=== PATIENT | female | born 1940 | race Caucasian/White ===

== ENCOUNTER → 2024-09-13 | Outpatient (CLI) | payer MEDICARE, BC ==
--- NOTE | 2024-09-14 08:57 | PE ---
EXAMINATION TYPE: PET CT fusion skull to thigh DATE OF EXAM: 09/13/2024 COMPARISON: NONE HISTORY: Lymphadenopathy. TECHNIQUE: Following the intravenous administration of 10.76 mCi of F-18 FDG, whole body images are performed from the skull base to the midthigh. Images are reviewed on the computer in the coronal, a xial, and sagittal planes. Reconstructed rotating images are created on independent workstation and reviewed on the computer. A localization and attenuation correction CT is performed in conjunction with the PET scan. Blood glucose level equals 85. SCAN: Initial Scan FINDINGS: SKULL BASE AND NECK: No definitive abnormal hypermetabolic lymph nodes. CHEST, MEDIASTINUM, AND HILAR REGION: There is abnormal enlargement and hypermetabolic thoracic adeno elgin extending into the anterior superior mediastinum. For reference there is an enlarged prevascula r lymph node measuring 2.3 x 1.1 cm axial image 78. Max SUV is 7.07 on axial image 72. Hypermetabolic prominent lymph node posterior to medial left clavicle upper mediastinum axial image 62, max SUV is 4.64 No abnormal hypermetabolic axillary lymph nodes are seen. ABDOMEN AND PELVIS: There are abnormal hypermetabolic retroperitoneal lymph nodes in the abdomen. For reference is a subcentimeter aortocaval lymph node axial image 162 with max SUV of 7.54. There are more prominent and enlarged hypermetabolic right pelvic or iliac chain lymph nodes. For ref erence is a 1.9 x 1.8 cm lymph node axial image 202. Max SUV is 10.89. There is more proximal hyperme tabolic lymph node with max SUV 11.85 on axial image 182 along the common iliac vessels. There is diffuse hypermetabolic uptake corresponding to the lower uterus/cervix posterior to the blad michelle. An underlying malignancy needs to be strongly considered. Max SUV is 24.08. OSSEOUS STRUCTURES: No definitive focal areas of abnormal hypermetabolic uptake. OTHER CT: Advanced degenerative change bilateral glenohumeral joints. Bilateral aphakia is present. M ild bibasilar linear scarring and/or atelectasis. No significant coronary artery calcification. Distal colonic diverticulosis. Small fat-containing bilateral inguinal hernias. IMPRESSION: Suspicious masslike uptake in the lower uterine segment/cervix is worrisome for primary n eoplasm. There is abnormal retroperitoneal adenopathy in the right pelvis and abdomen and abnormal me diastinal adenopathy in the thorax noted as detailed above. [facility], , 09/14/2024 8:54 AM
== END | disposition home or self-care (01) ==
LOC: RADPETMAIN 14:46
PROVIDERS: ATTEND Internal Medicine Hematology & Oncology
DX: R59.0 Localized enlarged lymph nodes (principal)
CPT/HCPCS: 78815; A9552

== ENCOUNTER 2024-10-04 12:44 | Day surgery (SDC) | payer MEDICARE, BC ==
[2024-10-02 14:59] VITALS: BMI 29.2
[~2024-10-04 12:44] MED LIST: HYDROmorphone 0.5 MG/0.5 ML SYRINGE IVP PRN; LACTATED RINGERS 1,000 ML IV SCH; LIDOCAINE 1% (10MG/ML) FOR IV START INTRADERMA PRN; MIDAZOLAM 2 MG/2 ML VIAL IV PRN; fentaNYL (PF) 50 MCG/ML 2 ML AMP IVP PRN
[2024-10-04] MEDS: IV FLUID CONTINUATION 1,000 ML IV ONE (13:16)
[2024-10-04] MEDS: DEXAMETHASONE SOD PHOSPHATE 4 MG/ML 1 ML VIAL IV ONE (13:26)
[2024-10-04] MEDS: ONDANSETRON 4 MG/2 ML VIAL IVP ONE (13:26)
[2024-10-04] MEDS: LACTATED RINGERS 1,000 ML IV SCH (13:27)
[2024-10-04] MEDS ORDERED: LIDOCAINE 1% INJ 10MG/ML (20 ML MDV) ONE (14:06)
[2024-10-04] MEDS ORDERED: fentaNYL (PF) 50 MCG/ML 2 ML AMP ONE (14:06)
[2024-10-04] MEDS ORDERED: PROPOFOL 10 MG/ML 20 ML VIAL IV ONE (14:06)
[2024-10-04] MEDS ORDERED: ROCURONIUM 10 MG/ML (5 ML VIAL) IV ONE (14:06)
[2024-10-04] MEDS ORDERED: SUCCINYLCHOLINE CHLORIDE 200 MG/10 ML VIAL IV ONE (14:06)
[2024-10-04 15:07] VITALS: TEMP 98.9
--- NOTE | 2024-10-04 15:16 | P.PCN ---
Date of Procedure: 10/04/24 Preoperative Diagnosis: Mediastinal lymphadenopathy Postoperative Diagnosis: Mediastinal lymphadenopathy Procedure(s) Performed: Flexible bronchoscopy Endobronchial ultrasound Transbronchial needle aspirate of subcarinal station 7 and anterior tracheal/par atracheal lymph nodes. Anesthesia: MAC Surgeon: Daniela Jennings Estimated Blood Loss (ml): 0 Pathology: other Condition: stable Disposition: same day Operative Findings: The procedure was done in the endoscopy suite. A consent was obtained. Timeout was done. Following that, the patient was intubated in the usual fashion by [employer] and placed on a mechanical ventilator. The flexible bronchoscope was introduced to the orotracheal tube and was advanced into the distal trachea. A complete airway inspection was done. Distal trachea, bilateral mainstem bronchi, right upper lobe bronchus, right middle lobe bronchus and the right lower bronchus and the various 10 segments on the right in addition to the left upper lobe bronchus and the left lower lobe bronchus on the basilar segments on the left were all within normal limits. No endobronchial tumors. No lesions. No secretions. Mucosa looked healthy. The flexible scope was removed and endobronchial ultrasound was inserted Endobronchial ultrasound was used to do a full mediastinal lymph node evaluation. There was extensive lymphadenopathy throughout the mediastinum. The lymph node was various sizes, measuring 29 mm in the anterior tracheal area, 26 mm in the right paratracheal station 4R, 9.8 mm station 10R, 9.6 mm station 11R, 17 mm station 7 and 13 mm station 10L. Noted, there were smaller lymph nodes attached to the bulkier ones in various stations specially in the anterior tracheal and right paratracheal area. Using a 22-gauge needle, transbronchial needle aspirate of the subcarinal lymph node was done, a total of 5 passes and then additional 2 passes were done in the same station harvesting the samples in lymphoma solution. Subsequently, transbronchial needle aspirate of station 4R anterior tracheal lymph node was also done with a total of 5 passes. No endobronchial bleeding. The patient tolerated the procedure well without any complications. The patient was extubated and transferred to recovery in stable condition.
[2024-10-04 16:24] VITALS: BP 111/63; PULSE 70; RESP 16
== END 2024-10-04 16:50 | disposition home or self-care (01) ==
LOC: ORWHC2ENDO 12:44
PROVIDERS: ATTEND Internal Medicine Critical Care Medicine
DX: R59.0 Localized enlarged lymph nodes (principal); E78.5 Hyperlipidemia, unspecified; E03.9 Hypothyroidism, unspecified; F41.9 Anxiety disorder, unspecified; Z87.891 Personal history of nicotine dependence; Z79.890 Hormone replacement therapy; Z79.899 Other long term (current) drug therapy; Z88.0 Allergy status to penicillin
CPT/HCPCS: 88305; 88342; 88341; 31653; J0330; J1100; J2405; J2003; J3010; J2704